=== PATIENT | female | born 2000 | race Two or more races ===

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

== ENCOUNTER 2020-05-23 20:30 | Emergency (ER) | payer MEDICAID ==
[~2020-05-23] VITALS: Ht 165.1 cm; Wt 58.7 kg
[2020-05-23 20:31] VITALS: BP 136/83
--- NOTE | 2020-05-23 21:35 | NUR ---
Patient/Caregiver given discharge instructions and they have confirmed that they understand the instructions. Patient ambulatory with steady gait.
== END 2020-05-23 21:36 | disposition home or self-care (01) ==
LOC: ED 21:25
DX: S01.25XA Open bite of nose, initial encounter (principal); S01.551A Open bite of lip, initial encounter; W54.0XXA Bitten by dog, initial encounter; Y93.89 Activity, other specified; Y92.89 Other specified places as the place of occurrence of the external cause; Y99.8 Other external cause status
CPT/HCPCS: 99283

== ENCOUNTER 2020-10-21 19:24 | Emergency (ER) | payer MEDICAID ==
[~2020-10-21] VITALS: Ht 165.1 cm; Wt 59.0 kg
[2020-10-21 19:37] VITALS: BP 125/87
== END 2020-10-21 21:04 | disposition home or self-care (01) ==
LOC: ED 19:54
DX: R07.89 Other chest pain (principal); R94.31 Abnormal electrocardiogram [ECG] [EKG]
CPT/HCPCS: 71045; 93005; 99284